=== PATIENT | male | born 1975 | race Caucasian/White ===

== ENCOUNTER 2023-11-25 14:41 | Emergency (ER) | payer SELFPAY ==
[~2023-11-25] VITALS: Ht 167.6 cm; Wt 90.0 kg
[2023-11-25 14:44] VITALS: O2SAT 98
[2023-11-25] MEDS: SODIUM CHLORIDE 0.9% 1,000 ML IV ONE (15:35)
[2023-11-25 16:10] LABS: CHLORIDE 102 mEq/L (98-107); POTASSIUM 4.3 mEq/L (3.5-5.1); SODIUM 135 mEq/L (136-145)
[2023-11-25 16:11] LABS: CARBON DIOXIDE 30 mEq/L (21-32)
[2023-11-25 16:12] LABS: CALCIUM 9.2 mg/dL (8.7-10.4)
[2023-11-25 16:13] LABS: BASOPHILS % 0.3 % (0.0-2.0); EOSINOPHILS % 1.3 % (0.0-5.0); HEMATOCRIT. 50.7 % (42.0-52.0); HEMOGLOBIN. 17.5 g/dL (14.0-18.0); LYMPHOCYTES % 31.1 % (20.0-50.0); MEAN CORPUSCULAR HGB CONC 34.4 g/dL (31.0-37.0); MEAN CORPUSCULAR VOLUME 95.9 fL (80.0-94.0); MEAN PLATELET VOLUME 7.8 fl (7.4-10.4); MONOCYTES % 6.1 % (2.0-8.0); NEUTROPHILS % 61.2 % (40.0-76.0); PLATELET 175 x1000/uL (130-400); RED BLOOD CELL COUNT 5.29 mill/uL (4.7-6.1); WHITE BLOOD COUNT 10.3 x1000/uL (4.5-11.0)
[2023-11-25 16:16] LABS: CREATININE 0.9 mg/dL (0.6-1.3); GLUCOSE 147 mg/dL (70-105); UREA NITROGEN BLOOD 8 mg/dL (9-23)
[2023-11-25 16:18] LABS: ETHANOL BLOOD < 10 mg/dL (<10)
[2023-11-25 17:05] LABS: CLARITY URINE CLEAR (CLEAR); COLOR URINE YELLOW (YELLOW); GLUCOSE URINE NEGATIVE (NEGATIVE); KETONES URINE NEGATIVE (NEGATIVE); LEUKOCYTE ESTERASE URINE NEGATIVE (NEGATIVE); NITRITE URINE NEGATIVE (NEGATIVE); OCCULT BLOOD URINE NEGATIVE (NEGATIVE); PH URINE 5.5 (4.5-8.0); PROTEIN URINE NEGATIVE (NEGATIVE); SPECIFIC GRAVITY URINE 1.013 (1.005-1.030)
[2023-11-25 17:15] LABS: *AMPHETAMINES SCREEN URINE NEGATIVE (NEGATIVE); *BARBITURATES SCREEN URINE NEGATIVE (NEGATIVE); *BENZODIAZEPINES SCREEN URINE PRESUMPTIVE POSITIVE (NEGATIVE); *COCAINE SCREEN URINE NEGATIVE (NEGATIVE); CANNABINOID URINE SCREEN PRESUMPTIVE POSITIVE (NEGATIVE); METHADONE URINE SCREEN NEGATIVE (NEGATIVE); OPIATES URINE SCREEN PRESUMPTIVE POSITIVE (NEGATIVE); PHENCYCLIDINE URINE SCREEN NEGATIVE (NEGATIVE)
[2023-11-25 17:16] LABS: ECSTASY MDMA SCREEN URINE NEGATIVE (NEGATIVE)
[2023-11-25 18:00] VITALS: TEMP 36.94740
[2023-11-25 19:35] VITALS: BP 132/76; PULSE 68; RESP 11; O2SAT 96
== END 2023-11-25 19:35 | disposition home or self-care (01) ==
LOC: ER 14:49
DX: T40.601A Poisoning by unspecified narcotics, accidental (unintentional), initial encounter (principal); Y92.89 Other specified places as the place of occurrence of the external cause
CPT/HCPCS: 80305; 80048; 81003; 80320; 85025; 36415; 96360; 99283; J7030; G0480